=== PATIENT | female | born 2000 | race Caucasian/White ===

== ENCOUNTER 2024-04-23 21:53 | Emergency (ER) | payer BC, SELFPAY ==
--- NOTE | 2024-04-23 22:40 | ED_ITS ---
HPI - General Adult General Time Seen by Provider: 22:40 Date Seen: 04/23/24 Chief complaint: Cough Stated complaint: lung pain, cough Time Seen by Provider: 04/23/24 22:19 Source: patient Mode of arrival: ambulatory Limitations: no limitations History of Present Illness HPI narrative: Espinoza is a 23-year-old female with recent exposure to pertussis, chronic lung disease with her specialists in [place] who comes to the emergency room with lung pain and onset of a cough. Patient notes the she actually had the onset of lung discomfort on April 19. She notes that it continued and even involved some soreness in her throat but she states she just ignored it. This was through the weekend but she did not contact her primary physician nor her specialist today. Tonight when she tried to go to bed she states it hurt more and was difficult to breathe when she was lying down. She has not had fever or chills. She denies a runny nose. Her son was treated for pertussis on TuesdayApril 20. She did not receive any prophylactic medication at that time. She has not had vomiting or diarrhea. Related Data Home Medications ?Medication ?Instructions ?Recorded ?Confirmed fluoxetine 20 mg capsule 20 mg PO DAILY 03/17/24 03/28/24 hydroxyzine HCl 10 mg tablet 10 mg PO BID 03/17/24 03/28/24 semaglutide (weight loss) 2.4 2.4 mg subcut 03/17/24 03/28/24 mg/0.75 mL subcutaneous pen injector (Wegovy) Previous Rx's ?Medication ?Instructions ?Recorded ketorolac 10 mg tablet 10 mg PO Q6H PRN pain #20 tabs 03/28/24 Allergies Allergy/AdvReac Type Severity Reaction Status Date / Time No Known Drug Allergies Allergy Verified 03/28/24 09:19 Review of Systems Status of ROS: Reports: 10 or more systems reviewed and unremarkable except as noted in History and below Const: Denies: fever or chills ENMT: Reports: throat pain; Denies: neck pain, difficulty swallowing, hoarseness or nasal congestion Cardio: Reports: chest pain and shortness of breath with exertion; Denies: swelling of feet/ankles Resp: Reports: shortness of breath and cough GI: Denies: abdominal pain, nausea, vomiting or difficulty swallowing Musculo: Denies: neck pain PFSH PFSH Social History Smoking Status: Unknown if ever smoked Do you use any of these nicotine containing products: None Second hand tobacco smoke exposure: No How often do you have a drink containing alcohol: never AUDIT-C Alcohol total score: 0 Non-prescribed substance use: denies use service: No Exam Narrative: Exam Narrative: Patient is alert and oriented. External ears eyes nose clear. TMs without erythema or fluid. Face symmetrical. Oral cavity with moist mucous membranes. No swelling erythema or exudate posterior oropharynx. Neck is supple without lymphadenopathy. Heart with regular rate and rhythm without murmur or rub. Lungs are clear in all lung harvey. Moving all extremities. Const: Documenting provider has reviewed patient's vital signs: yes Course Course ED Course: Differential diagnosis includes but is not limited to URI, pneumonia, pertussis, pleurisy. Patient does note that this pain seems to be consistent with her lung element. Will check a triple viral swab as well as pertussis and obtain x-ray at this time. 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 I do further talk to Espinoza and initially I felt she was describing the discomfort that she usually feels but it is not that way. She states this is much worse. She denies history of DVT, calf tenderness, racing heart recent extended car rides or periods of immobility. Do feel that we should do some blood work with this new information and therefore will check a CBC, comprehensive, troponin. Patient is in agreement. Vital Signs Vital signs: Initial Vital Signs Respiratory Effort Normal, Spontaneous, Non-Labored 04/24/24 00:10 Respiratory Depth Normal 04/24/24 00:10 Respiratory Pattern Normal 04/24/24 00:10 Medications Administered Medications: Discontinued Medications Generic Name Dose Route Start Last Admin Trade Name Freq PRN Reason Stop Dose Admin Ketorolac Tromethamine 15 mg 04/24/24 00:50 04/24/24 01:13 Ketorolac 15 Mg/Ml Inj IVP 04/24/24 00:51 15 mg ONCE ONE Administration Medical Decision Making [facility] Narrative Medical decision making narrative: 1. URI-I strongly suspect pertussis as her child tested positive and was treated for pertussis on TuesdayApril 20. Patient had the on set of some lung discomfort especially with deep breathing that initially she thought may be related to her new lung condition which is a mediastinal fibrosing. Un fortunately the pain worsened and a cough started today. Chest x-ray was clear of pneumonia. O2 sats were normal and there was no evidence of tachycardia, calf tenderness or history to suggest PE. EKG and troponin reassuring and there is nothing to suggest pericarditis or an acute coronary syndrome. Patient will be given Toradol 15 mg IV. She does feel confident going home. Will treat her with Zithromax 500 mg today followed by 250 mg daily for 4 days. She is advised to stay home from work until completion of her treatment. She does note that she had childhood immunizations, but notes immunity problems since treatment for her lung condition. She will follow-up with her primary to inquire about immunizations. 2. Disposition-home at this time. Rest, return as needed for worsening s ymptoms. May use ibuprofen as needed for discomfort. I did advise her significant other here [place] to talk to his clinic about a prescription for prophylactic antibiotics as he too has been exposed to pertussis. Did state to avoid infant's, the elderly and anyone at risk for illness. Medical Records Medical records reviewed: Yes I reviewed the patient's medical records Lab Data Lab results reviewed: Yes I reviewed the patient's lab results Labs: Lab Results 04/23/24 04/24/24 04/24/24 Range/Units 23:10 00:06 00:10 WBC 9.61 (4.50-11.00) K/uL RBC 4.62 (4.00-5.20) m/uL Hgb 12.5 (12.0-16.0) gm/dL Hct 38.9 (33.0-51.0) % MCV 84 (80-100) fL MCH 27 (26-34) pg MCHC 32 (32-36) gm/dL RDW Coeff of Miguelito 13.0 (11.5-15.5) % Plt Count 378 (140-440) K/uL Neut % (Auto) 56.9 (42.0-72.0) % Lymph % (Auto) 30.4 (20-44) % [place] % (Auto) 9.5 (0.0-11.0) % Eos % (Auto) 2.3 (0.0-7.0) % Baso % (Auto) 0.4 (0.0-3.0) % Neut # (Auto) 5.47 (1.7-7.0) K/uL Lymph # (Auto) 2.92 H (0.90-2.90) K/uL [place] # (Auto) 0.90 (0.00-0.90) K/UL Eos # (Auto) 0.22 (0.00-0.50) K/uL Baso # (Auto) 0.04 (0.00-0.30) K/uL Abs Immat Gran (auto) 0.05 (0.00-0.30) K/uL Imm/Tot Granulo (auto) 0.5 % Sodium 138 (135-149) mmol/L Potassium 3.9 (3.6-5.1) mmol/L Chloride 107 (96-114) mmol/L Carbon Dioxide 25 (20-32) mmol/L Anion Gap 6 L (7-15) mEq/L BUN 17 (5-24) mg/dL Creatinine 0.7 (0.5-1.5) mg/dL Estimated GFR 124 ml/min Glucose 97 (60-115) mg/dL Calcium 9.1 (8.4-10.6) mg/dL Total Bilirubin 0.3 (0.1-1.5) mg/dL AST 17 (12-35) U/L ALT 10 (4-35) U/L Alkaline Phosphatase 83 (40-150) U/L Total Protein 7.4 (6.0-8.3) g/dL Albumin 4.1 (3.3-5.0) g/dL SARS-CoV-2 (PCR) Negative SARS-CoV-2 (Negative) Influenza Type A (PCR) Negative PCR FLU A (Negative) Influenza Type B (PCR) Negative PCR FLU B (Negative) RSV (PCR) Negative PCR RSV (Negative) POC Troponin I 0.00 L (0.01-0.04) ng/ml Imaging Data Chest x-ray: Attestation: I have reviewed the pertinent imaging results. My impression: No evidence of infiltrate. Radiologist's impression: Cardiovascular and mediastinum: Heart size and vasculature are normal in caliber and appearance. Lungs and pleural spaces: Lungs are clear. No sign of infiltrate or mass. No sign of pleural effusion. No pneumothorax. Bones and soft tissues: No significant findings. IMPRESSION: Unremarkable chest. ECG Data Attestation: I personally reviewed and interpreted this ECG as follows: Interpretation: EKG by my read shows sinus rhythm at a rate of 71. I do not note any acute ST or T-wave changes. CO and QT intervals within normal limits. Discharge Plan Discharge Clinical Impression: Cough Patient Disposition: Home, Self-Care Condition: Improved Instructions: Acute Cough (ED) Additional Instructions: Start Zithromax tonight for treatment of presumed per tussis with your exposure in your son. Ibuprofen as needed for discomfort. Chest x-ray was read as clear. Seek medical attention for worsening symptoms. Prescriptions: No Action fluoxetine 20 mg capsule 20 mg PO DAILY Wegovy 2.4 mg/0.75 mL pen injector 2.4 mg subcut hydroxyzine HCl 10 mg tablet 10 mg PO BID ketorolac 10 mg tablet 10 mg PO Q6H PRN (Reason: pain) Qty: 20 0RF Rx Instructions: Take first oral dose at least 6 hours following dose in the office. Maximum total duration of 5 days from all oral, intranasal, or parenteral formulations Follow Up/Referrals: Provider,Not a Local [Primary Care Provider] - Stand Alone Forms: [employer] Info Instructions
--- NOTE | 2024-04-23 22:51 | CRLHL7_ITS ---
For Patients: As a result of the Century Cures Act, medical imaging exams and procedure reports are released immediately into your electronic medical record. You may view this report before your referring provider. If you have questions, please contact your health care provider. INDICATION: Cough. TECHNIQUE: Chest 1 view. COMPARISON: None. FINDINGS: Cardiovascular and mediastinum: Heart size and vasculature are normal in caliber and appearance. Lungs and pleural spaces: Lungs are clear. No sign of infiltrate or mass. No sign of pleural effusion. No pneumothorax. Bones and soft tissues: No significant findings. IMPRESSION: Unremarkable chest. Dictated by Iam Thomas MD @ 04/23/2024 11:46:30 PM (Electronically Signed)
[2024-04-24 00:11] LABS: PCR FLU A Negative PCR FLU A (Negative); PCR FLU B Negative PCR FLU B (Negative); PCR RSV Negative PCR RSV (Negative); SARS PCR* Negative SARS-CoV-2 (Negative)
[2024-04-24 00:31] LABS: Basophils Absolute Auto 0.04 K/uL (0.00-0.30); Basophils Percent Auto 0.4 % (0.0-3.0); Eosinophils Absolute Auto 0.22 K/uL (0.00-0.50); Eosinophils Percent Auto 2.3 % (0.0-7.0); Hematocrit 38.9 % (33.0-51.0); Hemoglobin* 12.5 gm/dL (12.0-16.0); Immature Granulocytes Abs Auto 0.05 K/uL (0.00-0.30); Immature Granulocytes Pct Auto 0.5 %; Lymphocytes Absolute Auto 2.92 K/uL (0.90-2.90); Lymphocytes Percent Auto 30.4 % (20-44); Mean Corpuscular HGB Conc 32 gm/dL (32-36); Mean Corpuscular Hemoglobin 27 pg (26-34); Mean Corpuscular Volume 84 fL (80-100); Monocytes Percent Auto 9.5 % (0.0-11.0); Neutrophils Absolute Auto 5.47 K/uL (1.7-7.0); Neutrophils Percent Auto 56.9 % (42.0-72.0); Platelet Count* 378 K/uL (140-440); Red Blood Count 4.62 m/uL (4.00-5.20); Slide Review Reflex No; White Blood Count* 9.61 K/uL (4.50-11.00)
[2024-04-24 00:48] LABS: Albumin* 4.1 g/dL (3.3-5.0); Chloride* 107 mmol/L (96-114)
[2024-04-24 00:49] LABS: Potassium* 3.9 mmol/L (3.6-5.1); Sodium* 138 mmol/L (135-149)
[2024-04-24 00:51] LABS: Alanine Aminotransferase* 10 U/L (4-35); Alkaline Phosphatase* 83 U/L (40-150); Anion Gap 6 mEq/L (7-15); Aspartate Amino Transferase* 17 U/L (12-35); Bilirubin Total* 0.3 mg/dL (0.1-1.5); Blood Urea Nitrogen* 17 mg/dL (5-24); Carbon Dioxide* 25 mmol/L (20-32); Creatinine* 0.7 mg/dL (0.5-1.5); Estimated Glomerular Filt Rate 124 ml/min; Glucose* 97 mg/dL (60-115); Total Protein* 7.4 g/dL (6.0-8.3)
[2024-04-24 00:52] LABS: Calcium* 9.1 mg/dL (8.4-10.6)
[2024-04-24] MEDS: KETOROLAC 15 MG/ML inj IVP (01:13)
[2024-04-26 03:57] LABS: B. pertussis/parapertus Source Not Provided; Bordetella parapertussis PCR Not Detected; Bordetella pertussis by PCR Not Detected
== END 2024-04-24 01:44 | disposition home or self-care (01) ==
PROVIDERS: Emergency Provider Family Medicine
DX: R05.9 Cough, unspecified (principal)
CPT/HCPCS: 36415; 71045; 80053; 84484; 85025; 87631; 93005; 96374; 99284; 99285; J1885

== ENCOUNTER 2024-07-17 15:25 | Outpatient (CLI) | payer OTHER, BC, SELFPAY | END 2024-07-17 15:26 | disposition home or self-care (01) | PROVIDERS: Visit Provider Physician Assistant | DX: R25.1 Tremor, unspecified (principal) | CPT/HCPCS: 83036; 84443 ==